=== PATIENT | male | born 1965 | race Caucasian/White ===

== ENCOUNTER → 2019-10-24 12:30 | Outpatient (CLI) | payer OTHER | END | disposition home or self-care (01) | LOC: D.US 12:30 | PROVIDERS: ATTEND Family Medicine | DX: I87.2 Venous insufficiency (chronic) (peripheral) (principal) ==

== ENCOUNTER → 2019-11-20 09:52 | Outpatient (CLI) | payer OTHER | END | disposition home or self-care (01) | LOC: D.US 09:52 | PROVIDERS: ATTEND Family Medicine | DX: R31.0 Gross hematuria (principal) ==

== ENCOUNTER → 2019-12-16 08:56 | Outpatient (CLI) | payer OTHER | END | disposition home or self-care (01) | LOC: D.HCCECHO 08:56 | PROVIDERS: ATTEND Internal Medicine Cardiovascular Disease | DX: I25.10 Atherosclerotic heart disease of native coronary artery without angina pectoris (principal) ==

== ENCOUNTER → 2019-12-18 08:21 | Outpatient (CLI) | payer OTHER | END | disposition home or self-care (01) | LOC: D.HCCARDIO 08:21 | PROVIDERS: ATTEND Internal Medicine Cardiovascular Disease | DX: I25.10 Atherosclerotic heart disease of native coronary artery without angina pectoris (principal) ==

== ENCOUNTER 2020-01-10 18:43 | Inpatient (IN) | payer OTHER ==
[~2020-01-10] VITALS: Ht 177.8 cm; Wt 112.0 kg
[2020-01-10] MEDS ORDERED: GABAPENTIN300 MG (19:43)
[2020-01-10] MEDS ORDERED: LIPITOR40 MG PO (19:43)
[2020-01-10] MEDS ORDERED: BAYER CHEWABLE81 MG PO (19:43)
[2020-01-10] MEDS ORDERED: HYDROCHLOROTHIA25 MG (19:43)
[2020-01-10] MEDS ORDERED: TRULANCE3 MG (19:43)
[2020-01-10] MEDS ORDERED: NORMODYNE / TR100 MG (19:43)
[2020-01-10] MEDS ORDERED: COZAAR25 MG (19:43)
[2020-01-10] MEDS ORDERED: BUMEX2 MG PO (19:43)
[2020-01-10] MEDS ORDERED: GLIMEPIRIDE1 MG (19:44)
[2020-01-10] MEDS ORDERED: COZAAR100 MG PO (19:52)
[2020-01-10] MEDS ORDERED: HYDROCHLOROTH12.5 M1 PO (19:52)
[2020-01-10 20:13] LABS: BASOPHILS 0.7 % (0-2); HEMATOCRIT 33.3 % (42.0-54.0); IMMATURE GRANULOCYTES 0.6 % (0-5); LYMPHOCYTES 24.4 % (15-50); MCH 29.7 pg (26.0-34.0); MEAN PLATELET VOLUME 9.4 fL (7.4-10.4); MONOCYTES 8.5 % (2-11); NEUTROPHILS 61.8 % (40-80); PLATELET COUNT 279 10x3/uL (130-400); RDW 13.7 % (11.5-14.5); WBC 8.8 10x3/uL (4.8-10.8)
--- NOTE | 2020-01-10 20:22 | NUR ---
750ML OF STRAW YELLOW URINE EMPTIED FROM PT'S URINAL.
[2020-01-10 20:30] LABS: BILIRUBIN NEGATIVE (NEGATIVE); GLUCOSE NEGATIVE (NEGATIVE); KETONE NEGATIVE (NEGATIVE); NITRITE NEGATIVE (NEGATIVE); UROBILINOGEN NORMAL (NORMAL); WHITE CELLS - URINE 0-5 /hpf (NEGATIVE)
[2020-01-10 20:31] LABS: BACTERIA FEW /hpf (NEGATIVE); EPITHELIAL CELLS NSEEN /hpf (0-5); RED CELLS - URINE NONE SEEN /hpf (0-5)
[2020-01-10 20:33] LABS: APTT 31.1 SECONDS (22.8-39.4); INR 0.95 (0.85-1.17); PROTIME 12.7 SECONDS (11.6-15.0)
[2020-01-10 20:40] LABS: CALC OSMOLALITY 281 mosm/kg (275-300); CALCIUM 8.7 mg/dL (8.5-10.1); CARBON DIOXIDE 26.6 mmol/L (21.0-32.0); CHLORIDE - SERUM 101 mmol/L (98-107); CREATININE - SERUM 1.1 mg/dL (0.6-1.3); GLUCOSE 148 mg/dL (74-106); POTASSIUM - SERUM 4.1 mmol/L (3.5-5.1); SODIUM 138 mmol/L (136-145); UREA NITROGEN 20 mg/dL (7-18); eGFR NON AFRICAN AMERICAN 74 mL/min (90-120)
[2020-01-10 20:50] LABS: ALBUMIN 3.7 g/dL (3.4-5.0); ALKALINE PHOSPHATASE 138 U/L (30-120); ALT (SGPT) 85 U/L (10-68); BILIRUBIN - TOTAL 0.56 mg/dL (0.2-1.3); CKMB 9.9 U/L (0.0-3.6); MAGNESIUM - SERUM 1.9 mg/dL (1.8-2.4); PRO BNP 1198 pg/mL (0-125); PROTEIN - SERUM 7.6 g/dL (6.4-8.2); THYROID STIMULATING HORMONE 2.33 uIU/mL (0.36-3.74)
[2020-01-10 20:55] LABS: CREATINE KINASE 809 UL (21-232); TROPONIN-I < 0.017 ng/mL (0.000-0.060)
--- NOTE | 2020-01-10 21:12 | NUR ---
900 ML OF STRAW YELLOW URINE EMPTIED FROM PT'S URINAL.
[2020-01-10 21:30] VITALS: BP 169/95
--- NOTE | 2020-01-10 22:01 | NUR ---
PT GIVEN CRACKERS AND PEANUT BUTTER TO EAT AND DIET COKE. PT DENIES ANY FURTHER NEEDS AT THIS TIME. 850 ML OF URINE EMPTIED FROM URINAL. CALL LIGHT WITHIN REACH. WILL CONITNUE TO MONITOR.
[2020-01-10 22:30] VITALS: BP 170/92
[2020-01-10 23:15] VITALS: BP 145/84
[2020-01-11] VITALS (7 sets, daily range): BP systolic 122–178; BP diastolic 78–101; Ht 177.8 cm; Wt 112.0 kg
[2020-01-11] MEDS ORDERED: GLIMEPIRIDE4 MG PO (00:38)
[2020-01-11] MEDS ORDERED: BUMETANIDE0.5 MG PO (00:40)
[2020-01-11] MEDS ORDERED: GABAPENTIN100 MG PO (00:41)
[2020-01-11] MEDS ORDERED: NORMODYNE / TR300 MG PO (00:44)
[2020-01-11] MEDS ORDERED: TRULICITY0.75 MG/0. SC (00:47)
[2020-01-11] MEDS ORDERED: MOBIC7.5 MG PO (00:58)
--- NOTE | 2020-01-11 01:45 | NUR ---
RECIEVED REPORT FROM ER. ARRIVED TO FLOOR IN W/C. ALERT AND ORIETNED X4. UP AD FOSTER TO B/R. DENIES ANY PAIN . ASSESSMENT COMPLETED.
[2020-01-11 05:34] LABS: BASOPHILS 0.5 % (0-2); HEMATOCRIT 30.4 % (42.0-54.0); HEMOGLOBIN 9.8 g/dL (13.5-17.5); IMMATURE GRANULOCYTES 0.4 % (0-5); LYMPHOCYTES 26.2 % (15-50); MCH 29.3 pg (26.0-34.0); MCHC 32.2 g/dL (31.0-37.0); MEAN PLATELET VOLUME 9.2 fL (7.4-10.4); MONOCYTES 8.4 % (2-11); NEUTROPHILS 60.5 % (40-80); PLATELET COUNT 262 10x3/uL (130-400); RBC 3.34 10x6/uL (4.20-6.10); RDW 13.7 % (11.5-14.5); WBC 7.7 10x3/uL (4.8-10.8)
[2020-01-11 06:04] LABS: ALBUMIN 3.1 g/dL (3.4-5.0); ALKALINE PHOSPHATASE 104 U/L (30-120); ALT (SGPT) 64 U/L (10-68); BILIRUBIN - TOTAL 0.41 mg/dL (0.2-1.3); CALC OSMOLALITY 279 mosm/kg (275-300); CALCIUM 8.5 mg/dL (8.5-10.1); CARBON DIOXIDE 28.6 mmol/L (21.0-32.0); CHLORIDE - SERUM 103 mmol/L (98-107); CKMB 5.9 U/L (0.0-3.6); CREATININE - SERUM 1.2 mg/dL (0.6-1.3); GLUCOSE 136 mg/dL (74-106); POTASSIUM - SERUM 3.6 mmol/L (3.5-5.1); PRO BNP 1419 pg/mL (0-125); PROTEIN - SERUM 6.7 g/dL (6.4-8.2); SODIUM 137 mmol/L (136-145); TROPONIN-I < 0.017 ng/mL (0.000-0.060); UREA NITROGEN 23 mg/dL (7-18); eGFR NON AFRICAN AMERICAN 67 mL/min (90-120)
[2020-01-11 06:13] LABS: CREATINE KINASE 528 UL (21-232)
--- NOTE | 2020-01-11 07:10 | NUR ---
RECEIVED REPORT, ASSUMED CARE, A&O, DENIES NEEDS, BED LOWEST POSITION, CALL LIGHT IN REACH, STATES ABD PAIN IS FEELING BETTER, WILL CONTINUE POC
--- NOTE | 2020-01-11 17:14 | NUR ---
CATAPRES 0.1MG GIVEN FOR BP 178/101
--- NOTE | 2020-01-11 19:46 | NUR ---
RECEIVED REPORT, WILL ASSUME CARE OF PT, SITTING UP IN CHAIR, DENIES ANY NEEDS, CALL LIGHT IN REACH, WILL CONTINUE PLAN OF CARE
[2020-01-12 04:00] VITALS: BP 116/76
[2020-01-12 04:25] VITALS: BP 114/69
--- NOTE | 2020-01-12 04:41 | NUR ---
I have reviewed this patient and I concur with the Shift Assessment completed by the Licensed Practical Nurse today this shift.
[2020-01-12 05:20] LABS: EOSINOPHILS 4.3 % (0-7); HEMATOCRIT 32.6 % (42.0-54.0); HEMOGLOBIN 10.5 g/dL (13.5-17.5); LYMPHOCYTES 21.6 % (15-50); MCH 29.5 pg (26.0-34.0); MCHC 32.2 g/dL (31.0-37.0); MCV 91.6 fL (80.0-100.0); MEAN PLATELET VOLUME 9.3 fL (7.4-10.4); MONOCYTES 9.8 % (2-11); NEUTROPHILS 62.3 % (40-80); PLATELET COUNT 266 10x3/uL (130-400); RBC 3.56 10x6/uL (4.20-6.10); RDW 13.8 % (11.5-14.5); WBC 8.2 10x3/uL (4.8-10.8)
[2020-01-12 05:47] LABS: ALBUMIN 3.3 g/dL (3.4-5.0); BILIRUBIN - TOTAL 0.6 mg/dL (0.2-1.3); CALCIUM 8.8 mg/dL (8.5-10.1); CARBON DIOXIDE 29.9 mmol/L (21.0-32.0); CREATININE - SERUM 1.5 mg/dL (0.6-1.3); MAGNESIUM - SERUM 2.1 mg/dL (1.8-2.4); POTASSIUM - SERUM 3.9 mmol/L (3.5-5.1); PROTEIN - SERUM 6.8 g/dL (6.4-8.2)
[2020-01-12] MEDS ORDERED: CATAPRES0.1 MG PO (06:41)
[2020-01-12 08:16] VITALS: BP 165/88
--- NOTE | 2020-01-12 08:25 | NUR ---
AM MEDS GIVEN AT THIS TIME. PT WATING ON DISCHARGE PAPERS. DENIES ANY NEEDS AT THIS TIME. CALL LIGHT IN REACH, NAD NOTED, WILL CONTINUE TO MONITOR.
--- NOTE | 2020-01-12 09:17 | NUR ---
PROVIDED VERBAL AND WRITTEN DISCHARGE TEACHING TO PT, WHO VERBALIZED UNDERSTANDING REGARDING TEACHING. D/C LT AC IV WITH CATHETER TIP INTACT. HEART MONITOR REMOVED AND TAKEN TO CANDY SUPERVISOR, PT LEFT UNIT VIA WHEELCHAIR WITH ALL BELONGINGS, NAD NOTED.
== END 2020-01-12 09:19 | disposition home or self-care (01) | DRG 291 ==
LOC: D.ER 18:43 → D.M2 21:42
PROVIDERS: Family Medicine; ADMIT Family Medicine; ATTEND Family Medicine
DX: I11.0 Hypertensive heart disease with heart failure (principal); I50.31 Acute diastolic (congestive) heart failure; I16.9 Hypertensive crisis, unspecified; G72.0 Drug-induced myopathy; D64.9 Anemia, unspecified; E11.9 Type 2 diabetes mellitus without complications; I25.10 Atherosclerotic heart disease of native coronary artery without angina pectoris; T50.995A Adverse effect of other drugs, medicaments and biological substances, initial encounter